=== PATIENT | female | born 1990 | race Two or more races ===

== ENCOUNTER 2017-03-14 04:22 | Emergency (ER) | payer MEDICAID ==
[~2017-03-14] VITALS: Ht 165.1 cm; Wt 81.6 kg
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
--- NOTE | 2017-03-14 04:45 | NUR ---
PT REFUSED TO DO V/S AT THIS TIME. RISK AND BENEFITS EXPLAINED X 3. PT REFUSED
--- NOTE | 2017-03-14 04:59 | NUR ---
FAMILY AT BEDSIDE
[2017-03-14 05:27] LABS: BASOPHILS % (AUTO) 0.5 % (0.0-2.0); EOSINOPHILS % (AUTO) 0.5 % (0.0-6.0); HEMATOCRIT 38 % (33-45); HEMOGLOBIN 13.1 g/dL (11.5-14.8); LYMPHOCYTES # (AUTO) 2.1 /CMM (0.8-4.8); LYMPHOCYTES % (AUTO) 28.6 % (20.0-44.0); MEAN CORPUSCULAR HEMOGLOBIN 30 PG (26.0-33.0); MEAN CORPUSCULAR HGB CONC 35 g/dl (31.0-36.0); MEAN CORPUSCULAR VOLUME 87 fL (82-100); MONOCYTES # (AUTO) 0.4 /CMM (0.1-1.30); NEUTROPHILS # (AUTO) 4.7 /CMM (1.8-8.9); NEUTROPHILS % (AUTO) 64.4 % (43.0-81.0); PLATELET COUNT (AUTO) 261 /CMM (150-450); RDW COEFFICIENT OF VARIATION 13.4 (11.5-15.0); RED BLOOD CELL COUNT(AUTO) 4.35 MIL/uL (4.0-5.2); WHITE BLOOD COUNT (AUTO) 7.3 K/uL (4.3-11.0)
[2017-03-14] MEDS ORDERED: IV NS 0.9% 1,000 ML BAG IV ONE (05:30)
[2017-03-14 05:38] LABS: CALCIUM, SERUM 8.9 mg/dL (8.5-10.1); CREATININE 0.7 mg/dL (0.6-1.3); POTASSIUM 3.3 mmol/L (3.5-5.1)
[2017-03-14 05:43] LABS: INR 0.99 (0.87-1.13); PROTHROMBIN TIME 10.6 SECS (9.5-12.7)
[2017-03-14 05:44] LABS: ALBUMIN 4.3 g/dL (3.4-5.0); BILIRUBIN,TOTAL 0.2 mg/dL (0.2-1.0); TOTAL PROTEIN, SERUM 8.4 g/dL (6.4-8.2)
[2017-03-14 05:47] LABS: SALICYLATE 0.9 mg/dL (2.8-20.0)
--- NOTE | 2017-03-14 05:48 | NUR ---
URINE COLLECTED. CALLED LAB FOR AIR VALUE TESTER
[2017-03-14] MEDS ORDERED: LORAZEPAM INJ 2 MG/ML VIAL IV ONE (06:00)
[2017-03-14 06:01] LABS: APPEARANCE,URINE CLEAR (CLEAR); BILIRUBIN,URINE NEGATIVE (NEGATIVE); BLOOD, URINE 3+ Ery/uL (NEGATIVE); KETONES,URINE NEGATIVE (NEGATIVE); LEUKOCYTE ESTERASE ,URINE NEGATIVE (NEGATIVE); NITRITE, URINE NEGATIVE (NEGATIVE); PH,URINE 5.5 (5.0-8.0); PROTEIN,URINE TRACE mg/dl (NEGATIVE); UGLUCOSE NEGATIVE (NEGATIVE); UROBILINOGEN,URINE 0.2 EU/dL (0.2)
[2017-03-14 06:03] LABS: PREGNANCY TEST URINE QUAL NEGATIVE (NEGATIVE)
[2017-03-14 06:04] LABS: COLOR,URINE YELLOW (YELLOW)
[2017-03-14 06:07] LABS: RBC,URINE 51-80 /HPF (0-2)
[2017-03-14 06:08] LABS: BACTERIA,URINE Moderate /HPF (None Seen); SQUAMOUS EPITHELIAL CELL,UR Rare /HPF (None Seen)
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
--- NOTE | 2017-03-14 08:05 | NUR ---
Patient is resting comfortably in bed with eyes closed. Easily aroused. VSS. Family member remains at bs.
--- NOTE | 2017-03-14 08:20 | NUR ---
IV removed. Catheter intact and site benign. Pressure and 4x4 applied to site. No bleeding noted.
--- NOTE | 2017-03-14 08:34 | NUR ---
Patient discharged to home in stable condition. Written and verbal after care instructions given. Patient/ family member verbalizes understanding of instruction.
[2017-03-14 08:35] VITALS: BP 130/85
== END 2017-03-14 08:36 | disposition home or self-care (01) ==
LOC: ER 04:24
DX: F10.129 Alcohol abuse with intoxication, unspecified (principal); R82.99 Other abnormal findings in urine; R79.1 Abnormal coagulation profile; R79.89 Other specified abnormal findings of blood chemistry
CPT/HCPCS: 36415; 80048-TC; 80076-TC; 80305; 81000-TC; 82962-TC; 84703-TC; 85025-TC; 85610-TC; 87086-TC; A4606; G0480; J7030; Z7610